=== PATIENT | male | born 1960 | race Caucasian/White ===

== ENCOUNTER 2017-03-08 19:27 | Emergency (ER) | payer MEDICAID ==
[~2017-03-08 19:27] MED LIST: CIPRO500 MG PO; DIT5 PO; FLO4 PO; METOPROLOL TART25 M1 PO; PRI20 PO; PROS5 PO; PYR100 PO
[2017-03-08 23:56] VITALS: BP 142/86
== END 2017-03-08 23:56 | disposition home or self-care (01) ==
LOC: ED 19:27
DX: L30.9 Dermatitis, unspecified (principal); Z98.890 Other specified postprocedural states
CPT/HCPCS: J7512; Q0163

== ENCOUNTER 2017-05-07 19:35 | Emergency (ER) | payer MEDICAID ==
[2017-05-07 21:35] LABS: BASOPHIL % 0.7 % (0-2); PLATELET COUNT 277 x10^3mcL (130-400); RED CELL DISTRIBUTION WIDTH 13.1 % (11.5-14.5)
[2017-05-07 21:43] LABS: CARBON DIOXIDE 30.6 mmol/L (21-32); CHLORIDE SERUM 105 mmol/L (98-107); GFR1 > 60 mL/min; GLUCOSE SERUM 104 mg/dL (74-106); POTASSIUM SERUM 4.5 mmol/L (3.5-5.1); SODIUM SERUM 141 mmol/L (136-145)
[2017-05-07 21:48] LABS: UA SPECIFIC GRAVITY >=1.030 (1.005-1.035); microscopic required? YES; urine erythrocyte 2+ (NEGATIVE)
[2017-05-07 21:48] LABS: ALBUMIN 3.9 g/dL (3.4-5.0); ALKALINE PHOSPHATASE 69 U/L (46-116); ALT/SGPT 29 U/L (16-63); AST/SGOT 16 U/L (15-37); BILIRUBIN TOTAL 0.89 mg/dL (0.20-1.00); LIPASE 158 IU/L (73-393); TOTAL PROTEIN, SERUM 7.2 g/dL (6.4-8.2)
[2017-05-07 23:27] VITALS: BP 139/86
== END 2017-05-07 23:27 | disposition home or self-care (01) ==
LOC: ED 19:35
PROVIDERS: Emergency Medicine
DX: N23 Unspecified renal colic (principal); K59.00 Constipation, unspecified
CPT/HCPCS: J1885; J7030

== ENCOUNTER 2017-10-24 20:03 | Emergency (ER) | payer MEDICAID ==
[~2017-10-24] VITALS: Ht 152.4 cm; Wt 79.5 kg
[2017-10-24 20:29] VITALS: Ht 152.4 cm; Wt 79.5 kg
[2017-10-24 21:48] LABS: BASOPHIL % 0.3 % (0-2); PLATELET COUNT 251 x10^3mcL (130-400); RED CELL DISTRIBUTION WIDTH 12.9 % (11.5-14.5)
[2017-10-24 21:49] LABS: UA SPECIFIC GRAVITY 1.025 (1.005-1.035); microscopic required? YES; urine erythrocyte 1+ (NEGATIVE)
[2017-10-24 21:54] LABS: CALCIUM 8.4 mg/dL (8.5-10.1); CARBON DIOXIDE 28.2 mmol/L (21-32); CHLORIDE SERUM 104 mmol/L (98-107); CREATININE SERUM 0.9 mg/dL (0.7-1.3); GFR1 > 60 mL/min; GLUCOSE SERUM 92 mg/dL (74-106); POTASSIUM SERUM 3.5 mmol/L (3.5-5.1); SODIUM SERUM 135 mmol/L (136-145)
[2017-10-25 00:29] VITALS: BP 150/90
== END 2017-10-25 00:29 | disposition home or self-care (01) ==
LOC: ED 20:03
PROVIDERS: Emergency Medicine Emergency Medical Services
DX: N40.0 Benign prostatic hyperplasia without lower urinary tract symptoms (principal); N41.9 Inflammatory disease of prostate, unspecified
CPT/HCPCS: 36415

== ENCOUNTER 2018-04-25 19:44 | Emergency (ER) | payer MEDICAID ==
[2018-04-25 20:24] VITALS: Ht 167.6 cm
[2018-04-25 22:45] VITALS: BP 140/90
== END 2018-04-25 22:45 | disposition home or self-care (01) ==
LOC: ED 19:44
DX: H11.002 Unspecified pterygium of left eye (principal)

== ENCOUNTER 2018-05-30 18:11 | Emergency (ER) | payer MEDICAID ==
[~2018-05-30] VITALS: Ht 165.1 cm; Wt 80.3 kg
[2018-05-30 18:19] VITALS: Ht 165.1 cm; Wt 80.3 kg
[2018-05-30 20:13] LABS: UA SPECIFIC GRAVITY >=1.030 (1.005-1.035); microscopic required? YES; urine erythrocyte 3+ (NEGATIVE)
[2018-05-30 20:28] LABS: BASOPHIL % 0.3 % (0-2); PLATELET COUNT 259 x10^3mcL (130-400); RED CELL DISTRIBUTION WIDTH 13.2 % (11.5-14.5)
[2018-05-30 20:34] LABS: CALCIUM 8.2 mg/dL (8.5-10.1); CARBON DIOXIDE 26.3 mmol/L (21-32); CHLORIDE SERUM 107 mmol/L (98-107); CREATININE SERUM 1.1 mg/dL (0.7-1.3); GFR1 > 60 mL/min; GLUCOSE SERUM 119 mg/dL (74-106); POTASSIUM SERUM 3.7 mmol/L (3.5-5.1); SODIUM SERUM 142 mmol/L (136-145)
[2018-05-30 20:40] LABS: ALBUMIN 3.7 g/dL (3.4-5.0); ALKALINE PHOSPHATASE 71 U/L (46-116); ALT/SGPT 27 U/L (16-63); AST/SGOT 31 U/L (15-37); BILIRUBIN TOTAL 0.68 mg/dL (0.20-1.00); LIPASE 139 IU/L (73-393); TOTAL PROTEIN, SERUM 6.7 g/dL (6.4-8.2)
[2018-05-30 22:48] VITALS: BP 158/72
== END 2018-05-30 22:48 | disposition home or self-care (01) ==
LOC: ED 18:11
PROVIDERS: Emergency Medicine
DX: R31.9 Hematuria, unspecified (principal); R10.9 Unspecified abdominal pain; N48.89 Other specified disorders of penis; Z98.890 Other specified postprocedural states
CPT/HCPCS: 36415

== ENCOUNTER 2018-09-29 20:26 | Emergency (ER) | payer MEDICAID ==
[~2018-09-29] VITALS: Ht 172.7 cm; Wt 81.6 kg
[2018-09-29 20:37] VITALS: Ht 172.7 cm; Wt 81.6 kg
[2018-09-29 21:23] LABS: BASOPHIL % 0.5 % (0-2); PLATELET COUNT 251 x10^3mcL (130-400); RED CELL DISTRIBUTION WIDTH 12.8 % (11.5-14.5)
[2018-09-29 21:36] LABS: CALCIUM 8.8 mg/dL (8.5-10.1); CARBON DIOXIDE 29.4 mmol/L (21-32); CHLORIDE SERUM 105 mmol/L (98-107); CREATININE SERUM 1.2 mg/dL (0.7-1.3); GFR1 > 60 mL/min; GLUCOSE SERUM 93 mg/dL (74-106); POTASSIUM SERUM 4.3 mmol/L (3.5-5.1); SODIUM SERUM 140 mmol/L (136-145)
[2018-09-29 21:37] LABS: UA SPECIFIC GRAVITY 1.025 (1.005-1.035); microscopic required? YES; urine erythrocyte 1+ (NEGATIVE)
[2018-09-29 21:43] LABS: ALBUMIN 3.7 g/dL (3.4-5.0); ALKALINE PHOSPHATASE 66 U/L (46-116); ALT/SGPT 28 U/L (16-63); AST/SGOT 14 U/L (15-37); BILIRUBIN TOTAL 0.81 mg/dL (0.20-1.00); TOTAL PROTEIN, SERUM 6.8 g/dL (6.4-8.2)
[2018-09-29 22:14] VITALS: BP 135/59
== END 2018-09-29 22:14 | disposition home or self-care (01) ==
LOC: ED 20:26
PROVIDERS: Emergency Medicine
DX: R31.9 Hematuria, unspecified (principal); M54.5 Low back pain; R10.30 Lower abdominal pain, unspecified; Z98.890 Other specified postprocedural states
CPT/HCPCS: J1885

== ENCOUNTER 2019-01-01 18:01 | Emergency (ER) | payer MEDICAID ==
[~2019-01-01] VITALS: Ht 165.1 cm; Wt 80.3 kg
[2019-01-01 18:28] VITALS: Ht 165.1 cm; Wt 80.3 kg
[2019-01-01 19:53] LABS: BASOPHIL % 0.3 % (0-2); PLATELET COUNT 233 x10^3mcL (130-400); RED CELL DISTRIBUTION WIDTH 12.6 % (11.5-14.5)
[2019-01-01 20:04] LABS: CALCIUM 8.9 mg/dL (8.5-10.1); CARBON DIOXIDE 27.6 mmol/L (21-32); CHLORIDE SERUM 107 mmol/L (98-107); CREATININE SERUM 1.1 mg/dL (0.7-1.3); GFR1 > 60 mL/min; GLUCOSE SERUM 100 mg/dL (74-106); POTASSIUM SERUM 3.7 mmol/L (3.5-5.1); SODIUM SERUM 144 mmol/L (136-145)
[2019-01-01 20:09] LABS: ALBUMIN 3.7 g/dL (3.4-5.0); ALKALINE PHOSPHATASE 69 U/L (46-116); ALT/SGPT 22 U/L (16-63); AST/SGOT 10 U/L (15-37); BILIRUBIN TOTAL 0.57 mg/dL (0.20-1.00); TOTAL PROTEIN, SERUM 6.4 g/dL (6.4-8.2)
[2019-01-01 22:43] VITALS: BP 142/85
== END 2019-01-01 22:43 | disposition home or self-care (01) ==
LOC: ED 18:01
PROVIDERS: Emergency Medicine
DX: K59.00 Constipation, unspecified (principal); N40.0 Benign prostatic hyperplasia without lower urinary tract symptoms; N34.2 Other urethritis; Z98.890 Other specified postprocedural states
CPT/HCPCS: 36415

== ENCOUNTER 2019-01-20 15:23 | Emergency (ER) | payer MEDICAID ==
[~2019-01-20] VITALS: Ht 167.6 cm; Wt 80.3 kg
[2019-01-20 15:28] VITALS: BP 137/75; Ht 167.6 cm; Wt 80.3 kg
== END 2019-01-20 16:11 | disposition home or self-care (01) ==
LOC: ED 15:23
DX: H66.93 Otitis media, unspecified, bilateral (principal); Z98.890 Other specified postprocedural states

== ENCOUNTER 2019-01-30 19:45 | Emergency (ER) | payer MEDICAID ==
[~2019-01-30] VITALS: Ht 165.1 cm; Wt 79.8 kg
[2019-01-30 20:02] VITALS: Ht 165.1 cm; Wt 79.8 kg
[2019-01-30 20:36] LABS: BASOPHIL % 0.3 % (0-2); PLATELET COUNT 263 x10^3mcL (130-400); RED CELL DISTRIBUTION WIDTH 12.9 % (11.5-14.5)
[2019-01-30 20:42] LABS: UA SPECIFIC GRAVITY 1.025 (1.005-1.035); microscopic required? YES; urine erythrocyte 3+ (NEGATIVE)
[2019-01-30 20:46] LABS: CALCIUM 8.8 mg/dL (8.5-10.1); CARBON DIOXIDE 28.6 mmol/L (21-32); CHLORIDE SERUM 107 mmol/L (98-107); CREATININE SERUM 0.9 mg/dL (0.7-1.3); GFR1 > 60 mL/min; GLUCOSE SERUM 109 mg/dL (74-106); POTASSIUM SERUM 3.8 mmol/L (3.5-5.1); SODIUM SERUM 144 mmol/L (136-145)
[2019-01-30 20:50] LABS: ALBUMIN 3.8 g/dL (3.4-5.0); ALKALINE PHOSPHATASE 71 U/L (46-116); ALT/SGPT 26 U/L (16-63); AST/SGOT 13 U/L (15-37); TOTAL PROTEIN, SERUM 6.8 g/dL (6.4-8.2)
[2019-01-30 22:56] VITALS: BP 138/89
== END 2019-01-30 22:56 | disposition home or self-care (01) ==
LOC: ED 19:45
PROVIDERS: Emergency Medicine
DX: N39.0 Urinary tract infection, site not specified (principal); Z98.890 Other specified postprocedural states
CPT/HCPCS: J1885; J7030

== ENCOUNTER 2019-03-16 17:04 | Emergency (ER) | payer MEDICAID ==
[~2019-03-16] VITALS: Ht 167.6 cm; Wt 79.4 kg
[2019-03-16 17:57] VITALS: BP 137/80; Ht 167.6 cm; Wt 79.4 kg
== END 2019-03-16 21:04 | disposition left against medical advice (07) ==
LOC: ED 17:04
DX: Z53.21 Procedure and treatment not carried out due to patient leaving prior to being seen by health care provider (principal)

== ENCOUNTER 2019-03-20 16:52 | Emergency (ER) | payer MEDICAID ==
[~2019-03-20] VITALS: Ht 167.6 cm; Wt 80.3 kg
[2019-03-20 17:04] VITALS: Ht 167.6 cm; Wt 80.3 kg
[2019-03-20 18:51] VITALS: BP 127/75
== END 2019-03-20 18:51 | disposition home or self-care (01) ==
LOC: ED 16:52
DX: N40.0 Benign prostatic hyperplasia without lower urinary tract symptoms (principal)
CPT/HCPCS: 82962

== ENCOUNTER 2019-04-22 10:23 | Emergency (ER) | payer MEDICAID ==
[~2019-04-22] VITALS: Ht 165.1 cm; Wt 78.5 kg
[2019-04-22 10:28] VITALS: Ht 165.1 cm; Wt 78.5 kg
[2019-04-22 10:56] LABS: BASOPHIL % 0.2 % (0-2); PLATELET COUNT 281 x10^3mcL (130-400)
[2019-04-22 11:05] LABS: CALCIUM 8.2 mg/dL (8.5-10.1); CARBON DIOXIDE 27.8 mmol/L (21-32); CHLORIDE SERUM 103 mmol/L (98-107); CREATININE SERUM 0.8 mg/dL (0.7-1.3); GFR1 > 60 mL/min; GLUCOSE SERUM 138 mg/dL (74-106); POTASSIUM SERUM 3.7 mmol/L (3.5-5.1); SODIUM SERUM 139 mmol/L (136-145)
[2019-04-22 11:15] LABS: ALKALINE PHOSPHATASE 89 U/L (46-116); ALT/SGPT 17 U/L (16-63); AST/SGOT 11 U/L (15-37); BILIRUBIN TOTAL 0.96 mg/dL (0.20-1.00); TOTAL PROTEIN, SERUM 6.8 g/dL (6.4-8.2)
[2019-04-22 11:16] LABS: ALBUMIN 3.2 g/dL (3.4-5.0)
[2019-04-22 11:57] LABS: microscopic required? YES; urine erythrocyte 3+ (NEGATIVE)
[2019-04-22 14:37] VITALS: BP 149/83
== END 2019-04-22 15:07 | disposition home or self-care (01) ==
LOC: ED 10:23
PROVIDERS: Emergency Medicine
DX: N39.0 Urinary tract infection, site not specified (principal); R31.9 Hematuria, unspecified; Z98.890 Other specified postprocedural states
CPT/HCPCS: J0696; J2270; J7060

== ENCOUNTER 2019-06-01 13:15 | Emergency (ER) | payer MEDICAID ==
[~2019-06-01] VITALS: Ht 167.6 cm; Wt 80.3 kg
[2019-06-01 13:20] VITALS: Ht 167.6 cm; Wt 80.3 kg
[2019-06-01 13:52] VITALS: BP 93/73
== END 2019-06-01 13:53 | disposition home or self-care (01) ==
LOC: ED 13:15
DX: H66.92 Otitis media, unspecified, left ear (principal); Z98.890 Other specified postprocedural states

== ENCOUNTER 2019-07-21 09:37 | Emergency (ER) | payer MEDICAID ==
[~2019-07-21] VITALS: Ht 180.3 cm; Wt 79.8 kg
[2019-07-21 09:43] VITALS: BP 141/87; Ht 180.3 cm; Wt 79.8 kg
== END 2019-07-21 10:25 | disposition home or self-care (01) ==
LOC: ED 09:37
DX: H66.92 Otitis media, unspecified, left ear (principal)

== ENCOUNTER 2019-09-12 09:17 | Emergency (ER) | payer MEDICAID ==
[~2019-09-12] VITALS: Ht 165.1 cm; Wt 70.3 kg
[2019-09-12 09:30] VITALS: Ht 165.1 cm; Wt 70.3 kg
[2019-09-12 10:33] LABS: BASOPHIL % 0.3 % (0-2); PLATELET COUNT 238 x10^3mcL (130-400); RED CELL DISTRIBUTION WIDTH 13.2 % (11.5-14.5)
[2019-09-12 10:36] LABS: ALBUMIN 3.6 g/dL (3.4-5.0); ALKALINE PHOSPHATASE 75 U/L (46-116); ALT/SGPT 23 U/L (16-63); AST/SGOT 12 U/L (15-37); BILIRUBIN TOTAL 1.3 mg/dL (0.20-1.00); CALCIUM 8.4 mg/dL (8.5-10.1); CARBON DIOXIDE 30.1 mmol/L (21-32); CHLORIDE SERUM 106 mmol/L (98-107); CREATININE SERUM 0.9 mg/dL (0.7-1.3); GFR1 > 60 mL/min; GLUCOSE SERUM 110 mg/dL (74-106); LIPASE 112 IU/L (73-393); POTASSIUM SERUM 3.8 mmol/L (3.5-5.1); SODIUM SERUM 141 mmol/L (136-145); TOTAL PROTEIN, SERUM 6.7 g/dL (6.4-8.2)
[2019-09-12 11:24] VITALS: BP 125/82
== END 2019-09-12 11:24 | disposition home or self-care (01) ==
LOC: ED 09:17
PROVIDERS: Emergency Medicine
DX: H92.02 Otalgia, left ear (principal); Z98.890 Other specified postprocedural states
CPT/HCPCS: 36415

== ENCOUNTER 2020-02-23 23:23 | Emergency (ER) | payer MEDICAID ==
[~2020-02-23] VITALS: Ht 165.1 cm; Wt 79.4 kg
[2020-02-23 23:33] VITALS: Ht 165.1 cm; Wt 79.4 kg
[2020-02-24 00:28] VITALS: BP 150/82
== END 2020-02-24 00:28 | disposition home or self-care (01) ==
LOC: ED 23:23
DX: R31.9 Hematuria, unspecified (principal); R10.30 Lower abdominal pain, unspecified; M54.5 Low back pain